=== PATIENT | male | born 1960 | race African-American/Black ===

== ENCOUNTER 2021-04-30 01:39 | Emergency (ER) | payer BC ==
[~2021-04-30] VITALS: Ht 195.6 cm; Wt 145.2 kg
[2021-04-30] MEDS ORDERED: LOVASTATIN 20 M20 MG PO (01:45)
[2021-04-30] MEDS ORDERED: NEXIUM20 M1 PO (01:46)
[2021-04-30] MEDS ORDERED: CLARITIN10 M3 PO (01:46)
[2021-04-30] MEDS ORDERED: SERTRALINE HCL100 MG PO (01:46)
[2021-04-30] MEDS ORDERED: CELEBREX 200 M200 MG PO (01:47)
[2021-04-30] MEDS ORDERED: BUPROPION XL300 MG PO (01:47)
[2021-04-30] MEDS ORDERED: MONTELUKAST SODI4 M1 PO (01:48)
[2021-04-30] MEDS ORDERED: IRON325 M1 PO (01:48)
[2021-04-30] MEDS ORDERED: VITAMIN B-125000 MCG PO (01:48)
[2021-04-30] MEDS ORDERED: NAPROXEN500 MG PO (01:49)
[2021-04-30] MEDS ORDERED: ZANAFLEX2 M1 PO (01:49)
[2021-04-30] MEDS ORDERED: LEVO-T100 MCG PO (01:50)
[2021-04-30] MEDS ORDERED: FAMOTIDINE 10 M10 MG PO (01:51)
[2021-04-30] MEDS ORDERED: FLOMAX0.4 MG PO (01:51)
[2021-04-30] MEDS ORDERED: AMBIEN 10 MG TA10 MG PO (01:51)
[2021-04-30 02:54] LABS: CALCIUM 9.4 mg/dL (8.5-10.1); CREATININE 1.5 mg/dL (0.6-1.3); POTASSIUM 3.7 mmol/L (3.5-5.1)
[2021-04-30] MEDS ORDERED: PERCOCET 7.5-31 EACH PO (06:25)
[2021-04-30 08:26] VITALS: BP 114/68
== END 2021-04-30 08:27 | disposition home or self-care (01) ==
LOC: M.ERS 01:39
PROVIDERS: Personal Emergency Response Attendant
DX: S83.92XA Sprain of unspecified site of left knee, initial encounter (principal); S80.02XA Contusion of left knee, initial encounter; Z79.899 Other long term (current) drug therapy; Z88.5 Allergy status to narcotic agent; W10.9XXA Fall (on) (from) unspecified stairs and steps, initial encounter; Y93.89 Activity, other specified; Y92.89 Other specified places as the place of occurrence of the external cause; Y99.8 Other external cause status